=== PATIENT | male | born 1935 ===

== ENCOUNTER 2017-08-09 16:00 | Outpatient (RCR) | payer OTHER | END 2017-08-31 | disposition home or self-care (01) | LOC: PTY 16:00 | DX: I73.9 Peripheral vascular disease, unspecified (principal); M48.00 Spinal stenosis, site unspecified ==

== ENCOUNTER 2017-09-05 08:05 | Outpatient (RCR) | payer OTHER | END 2017-09-30 | disposition home or self-care (01) | LOC: PTY 08:05 | DX: I73.9 Peripheral vascular disease, unspecified (principal); M48.00 Spinal stenosis, site unspecified ==

== ENCOUNTER 2017-09-11 09:00 | Outpatient (RCR) | payer OTHER | END 2017-09-30 | disposition home or self-care (01) | LOC: PTY 09:00 | DX: M17.0 Bilateral primary osteoarthritis of knee (principal); M25.511 Pain in right shoulder; I73.9 Peripheral vascular disease, unspecified ==

== ENCOUNTER 2017-10-07 09:00 | Outpatient (RCR) | payer OTHER | END 2017-10-31 | disposition home or self-care (01) | LOC: PTY 09:00 | DX: M17.0 Bilateral primary osteoarthritis of knee (principal); M25.511 Pain in right shoulder; I73.9 Peripheral vascular disease, unspecified ==

== ENCOUNTER 2017-11-01 08:30 | Outpatient (RCR) | payer OTHER | END 2017-11-30 | disposition home or self-care (01) | LOC: PTY 08:30 | DX: M17.0 Bilateral primary osteoarthritis of knee (principal); M25.511 Pain in right shoulder ==

== ENCOUNTER 2017-12-02 08:30 | Outpatient (RCR) | payer OTHER | END 2017-12-31 | disposition home or self-care (01) | LOC: PTY 08:30 | DX: M17.0 Bilateral primary osteoarthritis of knee (principal); M25.511 Pain in right shoulder ==